=== PATIENT | female | born 1940 | race Caucasian/White ===

== ENCOUNTER → 2024-06-12 | Outpatient (CLI) | payer MEDICARE, SELFPAY ==
[2024-06-12 17:35] LABS: Basophils % (Auto) 1 % (0-2.5); Eosinophils # (Auto) 0.2 Thou/mm3 (0.0-0.5); Eosinophils % (Auto) 3 % (0-10); Hemoglobin 13.4 g/dL (12.0-16.0); Immature Granulocytes % (Auto) 0 % (0-0); Immature Granulocytes Auto 0.03 Thou/mm3 (0.00-0.00); Lymphocytes # (Auto) 1.7 Thou/mm3 (1.0-4.8); Lymphocytes % (Auto) 22 % (10-50); Mean Corpuscular HGB Conc 33.5 g/dl (31.0-37.0); Mean Corpuscular Hemoglobin 29.7 pg (25.0-35.0); Mean Corpuscular Volume 89 fL (80-100); Monocytes # (Auto) 0.5 Thou/mm3 (0.0-0.8); Monocytes % (Auto) 7 % (0-12); Neutrophils # (Auto) 5.5 Thou/mm3 (1.8-7.7); Neutrophils % (Auto) 68 % (37-80); Nucleated Red Blood Cell % 0 /100 WBC (0); Platelet Count 249 Thou/mm3 (140-440); RDW Standard Deviation 43.2 fL (36.4-46.3); Red Blood Count 4.51 Miln/mm3 (4.00-5.20); White Blood Count 8.1 Thou/mm3 (3.6-11.0)
== END | disposition home or self-care (01) ==
LOC: COPL 16:01
PROVIDERS: PCP Specialist; Referring Provider Specialist; Visit Provider Specialist
DX: L65.8 Other specified nonscarring hair loss (principal)
CPT/HCPCS: 36415; 85025

== ENCOUNTER → 2024-10-10 | Outpatient (CLI) | payer MEDICARE, SELFPAY ==
[2024-10-10 14:15] LABS: Glucose Estimated Average 131 mg/dL (80-131); Hemoglobin A1C 6.2 % Hgb (4.8-6.0)
[2024-10-10 14:15] LABS: Creatinine MALB Rnd Ur 91 mg/dL (30-125); Microalbumin Creat Ratio 62 mg/gCrea (<30); Microalbumin, Random Urine 56 mg/L (0-300)
[2024-10-10 14:39] LABS: Alanine Aminotransferase 10 U/L (10-49); Albumin, Serum 4.2 gm/dL (3.4-4.8); Alkaline Phosphatase 64 U/L (46-116); Anion Gap 7 (7-16); Aspartate Amino Transferase 22 U/L (0-34); BUN/Creatinine Ratio 30 Ratio (12-20); Bilirubin,Total 1.1 mg/dL (0.3-1.2); Blood Urea Nitrogen 18 mg/dL (9-23); Calcium 9.1 mg/dL (8.3-10.6); Calcium (Corrected) 9.1 mg/dL (8.5-10.1); Carbon Dioxide 29.6 mMol/L (20.0-31.0); Cardiac Risk Estimate 2.3 RATIO (3.7-5.6); Chloride 105 mMol/L (98-107); Cholesterol 180 mg/dL (132-200); Creatinine (Component) 0.6 mg/dL (0.6-1.3); Globulin 2.1 gm/dL (2.3-3.5); Glucose 114 mg/dL (74-106); HDL Cholesterol 78 mg/dL (40-60); LDL Cholesterol,Calculated 89 mg/dL (0-130); Osmolality,Calculated 286 (275-295); Potassium 4.9 mMol/L (3.4-5.1); Sodium 142 mMol/L (136-145); Total Protein 6.3 gm/dL (5.7-8.2); Triglycerides 66 mg/dL (30-150); eGFR > 60 See Note
== END | disposition home or self-care (01) ==
LOC: COPL 13:10
PROVIDERS: PCP Specialist; Referring Provider Specialist; Visit Provider Specialist
DX: E11.69 Type 2 diabetes mellitus with other specified complication (principal)
CPT/HCPCS: 36415; 80053; 80061; 82043; 82570; 83036

== ENCOUNTER → 2024-12-11 | Outpatient (CLI) | payer MEDICARE, SELFPAY ==
--- NOTE | 2024-12-11 09:56 | XR_ITS ---
Examination: Lumbar spine, 5 views Technique: Lumbar spine AP, lateral, coned lateral lower lumbar spine, bilateral obliques 5 views Exam date and time: 2024 1023 hours INDICATIONS: Patient fell one month ago with injury to the lower back, lower back pain radiating down the legs. FINDINGS: Severe osteopenia. No lumbar fracture Moderately severe compression fracture T11 IMPRESSION: Recommend CT scan lumbar spine to include T11 to assess acuity of the moderately severe compression fracture T11
--- NOTE | 2024-12-11 09:56 | XR_ITS ---
December 11, 2024 1023 hours INDICATIONS: Patient fell one month ago with injury to the back, back pain. FINDINGS: Moderately severe compression fracture T11 Prominent osteopenia Diffuse [id number] thoracic disc narrowing IMPRESSION: Recommend CT examination thoracic spine follow-up to assess acuity of the fracture T11
== END | disposition home or self-care (01) ==
LOC: CDIM 09:40
PROVIDERS: PCP Specialist; Referring Provider Specialist; Visit Provider Specialist
DX: S22.089A Unspecified fracture of T11-T12 vertebra, initial encounter for closed fracture (principal); X58.XXXA Exposure to other specified factors, initial encounter; M85.88 Other specified disorders of bone density and structure, other site
CPT/HCPCS: 72072; 72110

== ENCOUNTER → 2024-12-17 | Outpatient (CLI) | payer MEDICARE, SELFPAY ==
--- NOTE | 2024-12-17 11:00 | XR_ITS ---
Examination: CT thoracic spine, without contrast. 2-D sagittal reconstructions. 2-D coronal reconstructions. 3-D reconstructions. Date and time of exam:December 17, 2024 1152 hours Comparison plain films thoracic spine December 11, 2024 INDICATIONS: Back pain one month, moderately severe compression fracture T11 on plain films thoracic spine December 11, 2024 CTDI: vol (mGy):14.1 DLP: (mGycm):149 Technique: Multiple 1.25 mm axial sections of the thoracic spine without intravenous contrast have been obtained. 2-D sagittal and coronal reconstructions have been obtained. 3-D reconstructions have been obtained. Low dose protocols were performed. One or more of the following dose reduction techniques were used; automated exposure control, adjustment of the mA and/or KV according to patient size, use of iterative reconstruction technique. Findings: Subacute compression fracture T11 vertebral body, reduction in height 60% Retropulsion of the posterior superior margin of this vertebral body 2 mm The pedicles and laminae at this level appear intact Remaining thoracic vertebral bodies appear intact Soft tissue settings demonstrate no focal thoracic disc protrusions IMPRESSION: Moderately severe subacute compression fracture T11
== END | disposition home or self-care (01) ==
LOC: CCTX 11:11
PROVIDERS: PCP Specialist; Referring Provider Specialist; Visit Provider Specialist
DX: S22.088A Other fracture of T11-T12 vertebra, initial encounter for closed fracture (principal); X58.XXXA Exposure to other specified factors, initial encounter
CPT/HCPCS: 72128

== ENCOUNTER → 2024-12-27 | Outpatient (CLI) | payer MEDICARE, SELFPAY ==
--- NOTE | 2024-12-27 15:31 | XR_ITS ---
Examination: Bilateral hips, AP pelvis, 5 views Technique: AP, lateral views both hips, AP pelvis, 5 views Exam date and time: December 20 70,025 1833 hours INDICATIONS: Bilateral hip pain one month. FINDINGS: Prominent osteopenia. Moderate narrowing right and left hip joints. No right or left hip fracture Bones of the pelvis is intact IMPRESSION: Moderate narrowing bilateral hip joints
--- NOTE | 2024-12-27 15:31 | XR_ITS ---
Examination: Tibia-Fibula, left , 2 views Technique: Tibia-fibula AP lateral 2 views Date and time of exam: December 27, 2024 1533 hours INDICATIONS: Left lower leg pain one month. FINDINGS: Prominent osteopenia No fracture or dislocation Mild knee tricompartment joint narrowing Moderate narrowing tibiotalar joint IMPRESSION: No fracture or dislocation Moderate narrowing tibiotalar joint
--- NOTE | 2024-12-27 15:31 | XR_ITS ---
Examination: Left femur 2 views TECHNIQUE: AP lateral left femur 2 views Date and time: December 27, 2024 1544 hours INDICATIONS: Left-sided hip pain and femur pain 1 month. FINDINGS: Shaft of the femur intact On the prior hip films there is moderate narrowing of the right and left hip joints IMPRESSION: Incomplete study Shaft of the femur intact
== END | disposition home or self-care (01) ==
PROVIDERS: PCP Specialist; Referring Provider Specialist; Visit Provider Specialist
DX: M25.852 Other specified joint disorders, left hip (principal); M25.851 Other specified joint disorders, right hip; M25.872 Other specified joint disorders, left ankle and foot
CPT/HCPCS: 73523; 73552; 73590

== ENCOUNTER → 2025-01-31 | Outpatient (CLI) | payer MEDICARE, SELFPAY ==
[2025-01-31 10:46] LABS: Glucose Estimated Average 140 mg/dL (80-131); Hemoglobin A1C 6.5 % Hgb (4.8-6.0)
[2025-01-31 11:09] LABS: Alanine Aminotransferase 14 U/L (10-49); Albumin, Serum 4.4 gm/dL (3.4-4.8); Albumin/Globulin Ratio 1.8 (1.2-2.2); Alkaline Phosphatase 55 U/L (46-116); Anion Gap 11 (7-16); Aspartate Amino Transferase 23 U/L (0-34); BUN/Creatinine Ratio 20 Ratio (12-20); Bilirubin,Total 1.5 mg/dL (0.3-1.2); Blood Urea Nitrogen 14 mg/dL (9-23); Calcium 9.3 mg/dL (8.3-10.6); Calcium (Corrected) 9.3 mg/dL (8.5-10.1); Carbon Dioxide 28.2 mMol/L (20.0-31.0); Cardiac Risk Estimate 2.5 RATIO (3.7-5.6); Chloride 102 mMol/L (98-107); Cholesterol 189 mg/dL (132-200); Creatinine (Component) 0.7 mg/dL (0.6-1.3); Globulin 2.4 gm/dL (2.3-3.5); Glucose 133 mg/dL (74-106); HDL Cholesterol 77 mg/dL (40-60); LDL Cholesterol,Calculated 99 mg/dL (0-130); Osmolality,Calculated 283 (275-295); Potassium 3.8 mMol/L (3.4-5.1); Sodium 141 mMol/L (136-145); Total Protein 6.8 gm/dL (5.7-8.2); Triglycerides 64 mg/dL (30-150); eGFR > 60 See Note
[2025-01-31 12:48] LABS: Creatinine MALB Rnd Ur 27 mg/dL (30-125); Microalbumin Creat Ratio 137 mg/gCrea (<30); Microalbumin, Random Urine 37 mg/L (0-300)
== END | disposition home or self-care (01) ==
LOC: COPL 10:07
PROVIDERS: PCP Specialist; Referring Provider Specialist; Visit Provider Specialist
DX: E11.65 Type 2 diabetes mellitus with hyperglycemia (principal); E78.2 Mixed hyperlipidemia
CPT/HCPCS: 36415; 80053; 80061; 82043; 82570; 83036

== ENCOUNTER → 2025-02-06 | Outpatient (CLI) | payer MEDICARE, SELFPAY ==
--- NOTE | 2025-02-06 14:28 | XR_ITS ---
Examination: Thoracic spine 2 views Technique one AP lateral thoracic spine 2 views Date and time: January 1455 hours INDICATIONS: Back pain years FINDINGS: Severe osteopenia. 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
== END | disposition home or self-care (01) ==
LOC: CDIM 13:54
PROVIDERS: PCP Specialist; Referring Provider Orthopaedic Surgery; Visit Provider Orthopaedic Surgery
DX: M85.88 Other specified disorders of bone density and structure, other site (principal); M40.204 Unspecified kyphosis, thoracic region; G95.29 Other cord compression
CPT/HCPCS: 72070

== ENCOUNTER → 2025-02-21 | Outpatient (CLI) | payer MEDICARE, SELFPAY ==
--- NOTE | 2025-02-21 13:23 | XR_ITS ---
Examination: Thoracic spine 3 views TECHNIQUE: AP lateral coned lateral upper dorsal spine 3 views Date and time: February 21, 2025 1424 hours Comparison February 06, 2025 INDICATIONS: Upper back pain 2 months. FINDINGS: Severe osteopenia, interval kyphoplasty T11 vertebral body with stable compression Mild to moderate diffuse thoracic disc narrowing IMPRESSION: Severe osteopenia Interval kyphoplasty T11 vertebral body with stable compression Mild to moderate diffuse thoracic degenerative disc disease
== END | disposition home or self-care (01) ==
LOC: CDIM 13:07
PROVIDERS: PCP Specialist; Referring Provider Orthopaedic Surgery; Visit Provider Orthopaedic Surgery
DX: M85.80 Other specified disorders of bone density and structure, unspecified site (principal); G95.20 Unspecified cord compression; M51.34 Other intervertebral disc degeneration, thoracic region
CPT/HCPCS: 72070

== ENCOUNTER → 2025-03-19 | Outpatient (CLI) | payer MEDICARE, SELFPAY ==
--- NOTE | 2025-03-19 | XR_ITS ---
Examination: Sternum 2 views Technique: Oblique lateral sternum 2 views Date and time: March 19, 2025 0804 hrs. Indications: Patient fell one week ago with injury to the chest, sternal pain. Findings: Acute fracture body of the sternum, 5 mm offset at the fracture site Impression: Acute fracture body of the sternum Consider CT chest post intravenous contrast follow-up to assess for chest trauma, as clinically warranted
[2025-03-19 10:03] LABS: Free T4 (Free Thyroxine) 1.44 ng/dL (0.89-1.76); Thyroid Stimulating Hormone 1.78 uIU/mL (0.55-4.78)
[2025-03-26 06:35] LABS: T3,Total* 74 ng/dL (76-181)
== END | disposition home or self-care (01) ==
PROVIDERS: PCP Specialist; Referring Provider Specialist; Visit Provider Specialist
DX: S29.9XXA Unspecified injury of thorax, initial encounter (principal); W19.XXXA Unspecified fall, initial encounter; E03.8 Other specified hypothyroidism
CPT/HCPCS: 36415; 71120; 84439; 84443; 84480

== ENCOUNTER → 2025-03-21 | Outpatient (CLI) | payer MEDICARE, SELFPAY ==
[2025-03-21 17:09] LABS: Albumin, Serum 4.3 gm/dL (3.4-4.8); Anion Gap 9 (7-16); BUN/Creatinine Ratio 26 Ratio (12-20); Blood Urea Nitrogen 18 mg/dL (9-23); Calcium 9.7 mg/dL (8.3-10.6); Calcium (Corrected) 9.7 mg/dL (8.5-10.1); Carbon Dioxide 29.0 mMol/L (20.0-31.0); Chloride 102 mMol/L (98-107); Creatinine (Component) 0.7 mg/dL (0.6-1.3); Glucose 140 mg/dL (74-106); Osmolality,Calculated 283 (275-295); Phosphorous 4.0 mg/dL (2.4-5.1); Potassium 3.9 mMol/L (3.4-5.1); Sodium 140 mMol/L (136-145); eGFR > 60 See Note
== END | disposition home or self-care (01) ==
LOC: COPL 16:23
PROVIDERS: PCP Specialist; Referring Provider Specialist; Visit Provider Specialist
DX: S22.22XA Fracture of body of sternum, initial encounter for closed fracture (principal); X58.XXXA Exposure to other specified factors, initial encounter
CPT/HCPCS: 36415; 80069

== ENCOUNTER → 2025-03-24 | Outpatient (CLI) | payer MEDICARE, SELFPAY ==
--- NOTE | 2025-03-24 | XR_ITS ---
Examination: CT chest with intravenous contrast 2-D sagittal and coronal reconstructions Exam date and time: March 24, 2025 1114 hours INDICATIONS: Patient fell one week ago with injury to the chest, chest pain CTDI:vol (mGy) 7.91 DLP: (mGycm) 265 Technique: Multiple axial sections of the thorax have been obtained. Sections have been obtained, 3 mm slice thickness. Mediastinal and lung density settings have been obtained. Intravenous contrast administered, 60 cc [id number]. 2-D sagittal, coronal images obtained. Low dose protocols were performed. One or more of the following dose reduction techniques were used; automated exposure control, adjustment of the mA and/or KV according to patient size, use of iterative reconstruction technique. Findings: 20 mm left thyroid nodule No thoracic aortic aneurysm dilatation, thoracic aorta pulmonary arteries appear intact Moderate calcification left anterior descending coronary artery Mild enlargement left atrium left ventricle, no hemopericardium 3 mm pulmonary nodule left lower lobe image 180 6 mm pleural-based pulmonary nodule right lower lobe image 193 3 mm pulmonary nodule right middle lobe image 197 3 mm pulmonary nodule left lower lobe image 220 No pneumonia or pulmonary edema No hemothorax Acute fracture mid body the sternum, 3 mm offset at the fracture site Severe chronic osteoporotic compression T11 with kyphoplasty No acute thoracic fracture No liver splenic or renal laceration Ribs appear intact IMPRESSION: Acute mildly displaced fracture body the sternum Thoracic aorta pulmonary arteries appear intact No hemopericardium pneumothorax or hemopericardium Subcentimeter pulmonary nodules as above, with this study as baseline recommend 6 month follow-up CT chest without contrast to document stability of the pulmonary nodules
== END | disposition home or self-care (01) ==
LOC: CDIM 08:03
PROVIDERS: Referring Provider Specialist; Visit Provider Specialist
DX: S22.20XA Unspecified fracture of sternum, initial encounter for closed fracture (principal); W19.XXXA Unspecified fall, initial encounter; R91.8 Other nonspecific abnormal finding of lung field
CPT/HCPCS: 71260; A4649; Q9967

== ENCOUNTER → 2025-04-01 | Outpatient (CLI) | payer MEDICARE, SELFPAY ==
[2025-04-01 11:46] LABS: Free T4 (Free Thyroxine) 1.42 ng/dL (0.89-1.76); Thyroid Stimulating Hormone 1.76 uIU/mL (0.55-4.78)
[2025-04-02 11:50] LABS: Cocci Serology, IgM Negative (Negative)
[2025-04-03 10:27] LABS: Cocci Serology, IgG Negative (Negative)
[2025-04-04 06:24] LABS: T3,Total* 72 ng/dL (76-181); Thyroglobulin Antibodies* <1 IU/mL (< OR = 1)
== END | disposition home or self-care (01) ==
LOC: COPL 10:19
PROVIDERS: PCP Specialist; Referring Provider Specialist; Visit Provider Specialist
DX: R91.8 Other nonspecific abnormal finding of lung field (principal); E04.1 Nontoxic single thyroid nodule
CPT/HCPCS: 36415; 84439; 84443; 84480; 86331; 86635; 86800

== ENCOUNTER → 2025-04-25 | Outpatient (CLI) | payer MEDICARE, SELFPAY ==
--- NOTE | 2025-04-25 13:06 | XR_ITS ---
EXAMINATION: Thyroid sonography complete TECHNIQUE: Grayscale sonographic images thyroid lobes Date and time: April 25, 2025, 1332 hours INDICATIONS: 20 mm left thyroid nodule on CT examination of the chest 03/24/2025. FINDINGS: Right thyroid 4.0 cm Multiple thyroid nodules, including upper pole 6 x 5 mm mid pole 6 x 5 mm lower pole 6 x 6 mm Left thyroid 4.4 cm Multiple left thyroid nodules, including upper pole 7 x 7 mm and lower pole 25 x 17 x 20 mm IMPRESSION: Multiple bilateral thyroid nodules Consider ultrasound-guided fine-needle aspiration of the large vascular lower pole left thyroid nodule 25 x 17 x 20 mm
[2025-05-01 11:20] LABS: Thyroglobulin Antibodies <1 IU/mL (< OR = 1)
[2025-05-02 06:33] LABS: Thyroglobulin 21.3 ng/mL
== END | disposition home or self-care (01) ==
LOC: CDIM 13:02 → COPL 13:50
PROVIDERS: PCP Specialist; Referring Provider Specialist; Visit Provider Radiology Diagnostic Radiology
DX: E04.1 Nontoxic single thyroid nodule (principal)
CPT/HCPCS: 36415; 76536; 84432; 86800